=== PATIENT | male | born 1955 | race African-American/Black ===

== ENCOUNTER 2019-04-28 16:32 | Emergency (ER) | payer MEDICARE, MEDICAID ==
[~2019-04-28] VITALS: Ht 190.5 cm; Wt 90.0 kg
[2019-04-28] MEDS ORDERED: CARV3.1242 PO (16:41)
[2019-04-28] MEDS ORDERED: LISI2.5T47 PO (16:41)
[2019-04-28] MEDS ORDERED: SODIUM CHLORIDE 0.9% 1,000 ML IV ONE (17:23)
[2019-04-28] MEDS ORDERED: MORPHINE SULFATE 4 MG/ML CPJ (NOT FOR IM USE) IV ONE (17:30)
[2019-04-28] MEDS ORDERED: ONDANSETRON HCL 4MG/2ML INJ IV ONE (17:30)
[2019-04-28] MEDS ORDERED: DIAZEPAM 5 MG TABLET PO ONE (17:30)
[2019-04-28 18:01] LABS: CHLORIDE 108 mEq/L (98-107)
[2019-04-28 18:03] LABS: BASOPHILS % 0.6 % (0.0-2.0); EOSINOPHILS % 2.3 % (0.0-5.0); HEMATOCRIT. 39.3 % (42.0-52.0); HEMOGLOBIN. 13.4 g/dL (14.0-18.0); LYMPHOCYTES % 32.8 % (20.0-50.0); MEAN CORPUSCULAR HEMOGLOBIN 32.5 pg (28.0-32.0); MEAN CORPUSCULAR VOLUME 95.3 fL (80.0-94.0); MEAN PLATELET VOLUME 9.4 fl (7.4-10.4); MONOCYTES % 8.5 % (2.0-8.0); NEUTROPHILS % 55.8 % (40.0-76.0); PLATELET 169 x1000/uL (130-400); RED BLOOD CELL COUNT 4.13 mill/uL (4.7-6.1); RED CELL DISTRIBUTION WIDTH 13.2 % (11.6-14.6)
[2019-04-28 18:06] LABS: ETHANOL BLOOD 53 mg/dL
[2019-04-28] MEDS ORDERED: KETOROLAC 30MG/ML VIAL IV ONE (19:45)
[2019-04-28 19:56] VITALS: BP 107/74
== END 2019-04-28 20:04 | disposition home or self-care (01) ==
LOC: ER 18:41
DX: E86.0 Dehydration (principal); M54.16 Radiculopathy, lumbar region; E03.9 Hypothyroidism, unspecified; R53.1 Weakness; R42 Dizziness and giddiness; I10 Essential (primary) hypertension; M54.30 Sciatica, unspecified side
CPT/HCPCS: 36415; 71045; 80053; 80320; 83880; 84443; 84484; 85025; 93005; 96361; 96374; 96375; 99284; J1885; J2270; J2405; J7030; G0480